=== PATIENT | male | born 1980 | race Two or more races ===

== ENCOUNTER 2024-08-03 06:11 | Inpatient (IN) | payer OTHER ==
[~2024-08-03] VITALS: Ht 182.9 cm; Wt 99.8 kg
[2024-08-03] MEDS ORDERED: ZOLOFT25 MG (06:18)
[2024-08-03] MEDS ORDERED: HYOSCYAMINE SULFATE 0.125 MG TAB.SUBL SL STA (06:35)
[2024-08-03] MEDS ORDERED: RINGERS SOLUTION,LACTATED 1,000 ML IV STA (06:35)
[2024-08-03] MEDS ORDERED: PROMETHAZINE HCL 50 MG/ML AMPUL IM STA (06:36)
[2024-08-03] MEDS ORDERED: MEPERIDINE HCL/PF 50 MG/ML VIAL IM STA (06:36)
[2024-08-03] MEDS ORDERED: HYOSCYAMINE SULFATE 0.125 MG TAB.SUBL ONE (07:15)
[2024-08-03] MEDS ORDERED: PROMETHAZINE HCL 50 MG/ML AMPUL IM ONE (07:15)
[2024-08-03] MEDS ORDERED: DIATRIZOATE MEGLUMINE, SODIUM 30 ML BOTTLE ONE (07:25)
[2024-08-03 08:38] LABS: ALBUMIN 3.5 gm/dL (3.4-5.0); CREATININE SERUM 0.9 mg/dL (0.70-1.30); GFR 90.84; GLOBULINA 4.1 G/DL (2.4-3.5); POTASSIUM 3.51 mEq/L (3.5-5.1); TOTAL PROTEIN 7.6 gm/dL (6.4-8.2)
[2024-08-03 08:39] LABS: HEMATOCRIT 41.8 % (39.0-48.0); HEMOGLOBIN 14.6 g/dL (13-16.00); MEAN CELL VOLUME 86.9 fL (80.0-100.00); MEAN CORPUSCULAR HEMOGLOBIN 30.3 pg (27.00-32.0); MEAN CORPUSCULAR HGB CONC 34.9 g/dl (32.0-36.0); PLATELET COUNT 305 K/uL (150-450); RED BLOOD COUNT 4.81 M/uL (4.00-6.00); RED CELL DISTRIBUTION WIDTH 14.2 % (11.5-14.5)
[2024-08-03 08:43] LABS: INR 1.16; PROTHROMBIN TIME 12.5 SECONDS (9.0-11.5)
[2024-08-03] MEDS ORDERED: PIPERACILLIN/TAZOBACTAM SODIUM 3.375 GM VIAL IV ONE ×2 (10:25→10:30)
[2024-08-03] MEDS ORDERED: MORPHINE SULFATE 4 MG/ML CARTRIDGE IV ONE (12:00)
[2024-08-03] MEDS ORDERED: FAMOTIDINE/PF 20 MG/2 ML VIAL IV SCH (12:56)
[2024-08-03] MEDS ORDERED: ONDANSETRON HCL 4 MG in 0.9 % SODIUM CHLORIDE 50 ML IV PRN (13:00)
[2024-08-03] MEDS ORDERED: 0.9 % SODIUM CHLORIDE 1,000 ML IV SCH (13:00)
[2024-08-03] MEDS ORDERED: ENOXAPARIN SODIUM 40 MG/0.4 ML SYRINGE SUBCUTANEO SCH (13:00)
[2024-08-03] MEDS ORDERED: SERTRALINE HCL 100 MG TABLET PO SCH (13:13)
[2024-08-03] MEDS ORDERED: FAMOTIDINE/PF 20 MG/2 ML VIAL ONE (13:51)
[2024-08-03] MEDS ORDERED: ENOXAPARIN SODIUM 40 MG/0.4 ML SYRINGE SUBCUTANEO ONE (13:51)
[2024-08-03] MEDS ORDERED: PIPERACILLIN/TAZOBACTAM SODIUM 3.375 GM in 0.9 % SODIUM CHLORIDE 100 ML IV SCH (14:00)
[2024-08-03 14:25] VITALS: BP 130/79; O2SAT 100
[2024-08-03 14:54] LABS: INR 1.18; PARTIAL THROMBOPLASTIN TIME 34.3 SECONDS (22.0-34.0); PROTHROMBIN TIME 12.7 SECONDS (9.0-11.5)
[2024-08-03 15:42] VITALS: BP 114/74; O2SAT 99
[2024-08-03] MEDS ORDERED: MORPHINE SULFATE 4 MG/ML CARTRIDGE IV PRN (17:15)
[2024-08-03 18:00] VITALS: BP 158/84; O2SAT 97
[2024-08-03 21:01] LABS: PH,URINE 5.5 (5.0-8.0); URINE APPEARANCE Clear; URINE BILIRRUBIN Negative (NEGATIVE); URINE BLOOD Moderate; URINE COLOR Dark Yellow; URINE GLUCOSE Negative (NEGATIVE); URINE LEUKOCYTE Negative; URINE NITRATE Negative
[2024-08-03 21:04] LABS: URINE EPITHELIAL CELLS 5.5 uL (0.0-38.8); URINE WBC 4.7 uL (0.0-23.2)
[2024-08-03 21:07] LABS: URINE BACTERIA 1.2 uL (0.0-1933); URINE KETONE 40 (NEGATIVE); URINE PROTEIN 100 (NEGATIVE)
[2024-08-04 02:16] VITALS: BP 140/80; O2SAT 97
[2024-08-04 08:14] VITALS: BP 123/75
[2024-08-04 09:00] LABS: HEMATOCRIT 42.3 % (39.0-48.0); HEMOGLOBIN 14.3 g/dL (13-16.00); MEAN CORPUSCULAR HEMOGLOBIN 30.3 pg (27.00-32.0); MEAN CORPUSCULAR HGB CONC 33.7 g/dl (32.0-36.0); PLATELET COUNT 272 K/uL (150-450); RED CELL DISTRIBUTION WIDTH 14.1 % (11.5-14.5)
[2024-08-04 09:24] LABS: CALCIUM 8.8 mg/dL (8.5-10.1); CREATININE SERUM 0.94 mg/dL (0.70-1.30); GFR 86.4; POTASSIUM 3.78 mEq/L (3.5-5.1)
[2024-08-04 17:01] VITALS: BP 147/87
[2024-08-04] MEDS ORDERED: fentaNYL CITRATE 50 MCG/ML AMPUL IV PUSH ONE (17:45)
[2024-08-04] MEDS ORDERED: MIDAZOLAM HCL 2 MG/2 ML VIAL IV PUSH ONE (17:45)
[2024-08-04] MEDS ORDERED: FentaNYL CITRATE/PF 50MCG/ML 2ML VIAL IJ ONE (21:15)
[2024-08-05 00:46] VITALS: BP 133/84; O2SAT 97
[2024-08-05 07:43] VITALS: BP 129/80
[2024-08-05 17:50] VITALS: BP 148/87
[2024-08-05 17:53] VITALS: BP 148/87
[2024-08-05] MEDS ORDERED: SODIUM CL 0.9% 100 ML IV.SOLN IV ONE (23:27)
[2024-08-06 01:00] VITALS: BP 138/88; O2SAT 98
[2024-08-06] MEDS ORDERED: PIPERACILLIN/TAZOBACTAM SODIUM 3.375 GM VIAL IV ONE ×2 (08:26→14:04)
[2024-08-06 09:11] VITALS: BP 151/97; O2SAT 98
[2024-08-06 10:57] LABS: HEMATOCRIT 39.9 % (39.0-48.0); HEMOGLOBIN 13.2 g/dL (13-16.00); MEAN CELL VOLUME 90.1 fL (80.0-100.00); MEAN CORPUSCULAR HEMOGLOBIN 29.7 pg (27.00-32.0); PLATELET COUNT 356 K/uL (150-450); RED BLOOD COUNT 4.42 M/uL (4.00-6.00); RED CELL DISTRIBUTION WIDTH 14.5 % (11.5-14.5)
[2024-08-06 11:55] LABS: ALBUMIN 2.6 gm/dL (3.4-5.0); CALCIUM 8.8 mg/dL (8.5-10.1); CREATININE SERUM 0.68 mg/dL (0.70-1.30); GFR 125.54; MAGNESIUM 1.9 mg/dL (1.8-2.4); PHOSPHOROUS 2.8 mg/dL (2.5-4.9); POTASSIUM 3.67 mEq/L (3.5-5.1)
[2024-08-06 12:06] LABS: C-REACTIVE PROTEIN 18.7 MG/DL (0.00-0.29)
[2024-08-06 16:38] VITALS: BP 158/89
[2024-08-06] MEDS ORDERED: ALPRAzolam 0.25 MG TABLET PO SCH (21:00)
[2024-08-07 01:50] VITALS: BP 174/90
[2024-08-07] MEDS ORDERED: PIPERACILLIN/TAZOBACTAM SODIUM 3.375 GM VIAL IV ONE (07:49)
[2024-08-07 08:14] VITALS: BP 137/88
[2024-08-07 16:00] VITALS: BP 156/99; O2SAT 98
[2024-08-08 01:26] VITALS: BP 160/88
[2024-08-08 09:17] VITALS: BP 161/90
[2024-08-08] MEDS ORDERED: DIATRIZOATE MEGLUMINE, SODIUM 30 ML BOTTLE PO ONE (15:45)
[2024-08-08 16:00] VITALS: BP 151/91; O2SAT 99
[2024-08-08 19:50] LABS: HEMATOCRIT 38.7 % (39.0-48.0); MEAN CELL VOLUME 90.3 fL (80.0-100.00); MEAN CORPUSCULAR HEMOGLOBIN 30.3 pg (27.00-32.0); MEAN CORPUSCULAR HGB CONC 33.6 g/dl (32.0-36.0); PLATELET COUNT 443 K/uL (150-450); RED BLOOD COUNT 4.29 M/uL (4.00-6.00); RED CELL DISTRIBUTION WIDTH 14.4 % (11.5-14.5)
[2024-08-08 20:17] LABS: ALBUMIN 2.8 gm/dL (3.4-5.0); BILIRUBIN TOTAL 0.41 mg/dL (0.3-1.2); CALCIUM 8.6 mg/dL (8.5-10.1); CREATININE SERUM 0.81 mg/dL (0.70-1.30); GFR 102.59; GLOBULINA 3.7 G/DL (2.4-3.5); POTASSIUM 4.44 mEq/L (3.5-5.1); TOTAL PROTEIN 6.5 gm/dL (6.4-8.2)
[2024-08-09 02:07] VITALS: BP 154/97; O2SAT 98
[2024-08-09 08:19] VITALS: BP 140/81
[2024-08-09] MEDS ORDERED: METROnidazole 500 MG TABLET PO SCH (17:00)
[2024-08-09] MEDS ORDERED: levoFLOXacin IN DEXTROSE 5 % 150 ML IV SCH (17:00)
[2024-08-09 17:07] VITALS: BP 129/82; O2SAT 99
[2024-08-09 17:46] LABS: ALBUMIN 2.9 gm/dL (3.4-5.0); ALKALINE PHOSPHATASE 129 U/L (50-136); ALT/SGPT 89 U/L (12-78); AST/SGOT 41 U/L (15-37); BILIRUBIN TOTAL 0.39 mg/dL (0.3-1.2); BILIRUBIN,CONJUGATED < 0.10 mg/dL (0.0-0.2); BILIRUBIN,UNCONJUGATED 0.29 mg/dL (0.0-0.6); PHOSPHOKINASE CREATININE 37 U/L (39-308); TOTAL PROTEIN 6.8 gm/dL (6.4-8.2)
[2024-08-09] MEDS ORDERED: DIPHENHYDRAMINE HCL 50 MG/ML VIAL 1ML IV NR (18:00)
[2024-08-10 02:47] VITALS: BP 142/88; O2SAT 96
[2024-08-10 08:46] LABS: HEMATOCRIT 39.9 % (39.0-48.0); MEAN CELL VOLUME 89.6 fL (80.0-100.00); MEAN CORPUSCULAR HEMOGLOBIN 31.4 pg (27.00-32.0); MEAN CORPUSCULAR HGB CONC 35.1 g/dl (32.0-36.0); PLATELET COUNT 507 K/uL (150-450); RED BLOOD COUNT 4.45 M/uL (4.00-6.00); RED CELL DISTRIBUTION WIDTH 14.5 % (11.5-14.5)
[2024-08-10 09:27] VITALS: BP 138/84; O2SAT 98
[2024-08-10 09:58] LABS: BILIRUBIN TOTAL 0.47 mg/dL (0.3-1.2); CALCIUM 9.1 mg/dL (8.5-10.1); CREATININE SERUM 0.75 mg/dL (0.70-1.30); GFR 112.12; GLOBULINA 3.9 G/DL (2.4-3.5); POTASSIUM 4.2 mEq/L (3.5-5.1); TOTAL PROTEIN 6.9 gm/dL (6.4-8.2)
== END 2024-08-10 17:23 | disposition home or self-care (01) | DRG 871 ==
LOC: ER 06:11 → MEDJ 14:04 → SEC-K 14:04 → MEDJ 16:14
PROVIDERS: General Practice; Internal Medicine Infectious Disease; Student in an Organized Health Care Education/Training Program; Surgery; ADMIT Internal Medicine; ATTEND Internal Medicine
PROC: BW21YZZ Computerized Tomography (CT Scan) of Abdomen and Pelvis using Other Contrast (ICD-10-PCS; 2024-08-03)
PROC: 0W9G30Z Drainage of Peritoneal Cavity with Drainage Device, Percutaneous Approach (ICD-10-PCS; principal; 2024-08-04)
PROC: BW21YZZ Computerized Tomography (CT Scan) of Abdomen and Pelvis using Other Contrast (ICD-10-PCS; 2024-08-09)
DX: A41.9 Sepsis, unspecified organism (principal); K35.33 Acute appendicitis with perforation, localized peritonitis, and gangrene, with abscess; L02.211 Cutaneous abscess of abdominal wall; K38.1 Appendicular concretions; E86.0 Dehydration; L27.1 Localized skin eruption due to drugs and medicaments taken internally; T36.0X5A Adverse effect of penicillins, initial encounter; Y92.230 Patient room in hospital as the place of occurrence of the external cause; B96.20 Unspecified Escherichia coli [E. coli] as the cause of diseases classified elsewhere; B96.4 Proteus (mirabilis) (morganii) as the cause of diseases classified elsewhere; B96.6 Bacteroides fragilis [B. fragilis] as the cause of diseases classified elsewhere; B96.89 Other specified bacterial agents as the cause of diseases classified elsewhere

== ENCOUNTER 2024-08-24 07:38 | Outpatient (CLI) | payer OTHER ==
[~2024-08-24 07:38] MED LIST: ZOLOFT25 MG
== END 2024-08-24 07:55 | disposition home or self-care (01) ==
LOC: TOM 07:38
PROVIDERS: ATTEND Student in an Organized Health Care Education/Training Program
DX: K65.1 Peritoneal abscess (principal)

== ENCOUNTER 2024-09-06 09:51 | Inpatient (IN) | payer OTHER ==
[~2024-09-06] VITALS: Ht 185.4 cm; Wt 95.3 kg
[2024-09-06] MEDS ORDERED: ZOLOFT100 MG PO (11:15)
[2024-09-06] MEDS ORDERED: XANAX0.25 MG PO (11:16)
[2024-09-06] MEDS ORDERED: 0.9 % SODIUM CHLORIDE 1,000 ML IV STA (11:27)
[2024-09-06 12:26] LABS: HEMATOCRIT 39.8 % (39.0-48.0); HEMOGLOBIN 13.7 g/dL (13-16.00); MEAN CELL VOLUME 88.8 fL (80.0-100.00); MEAN CORPUSCULAR HEMOGLOBIN 30.6 pg (27.00-32.0); MEAN CORPUSCULAR HGB CONC 34.5 g/dl (32.0-36.0); PLATELET COUNT 354 K/uL (150-450); RED BLOOD COUNT 4.48 M/uL (4.00-6.00); RED CELL DISTRIBUTION WIDTH 13.8 % (11.5-14.5)
[2024-09-06 12:49] LABS: CALCIUM 9.8 mg/dL (8.5-10.1); CREATININE SERUM 0.83 mg/dL (0.70-1.30); GFR 99.74; POTASSIUM 3.86 mEq/L (3.5-5.1)
[2024-09-06 13:26] LABS: PH,URINE 5.5 (5.0-8.0); URINE APPEARANCE Clear; URINE BILIRRUBIN Small (NEGATIVE); URINE BLOOD Moderate; URINE COLOR Dark Yellow; URINE GLUCOSE Negative (NEGATIVE); URINE LEUKOCYTE Small; URINE NITRATE Negative
[2024-09-06 13:32] LABS: URINE BACTERIA 55.4 uL (0.0-1933); URINE EPITHELIAL CELLS 10.9 uL (0.0-38.8); URINE RBC 194.5 uL (0.0-20.8); URINE WBC 10.3 uL (0.0-23.2)
[2024-09-06 13:56] LABS: URINE CAST 0.91 uL (0.0-1.40); URINE KETONE 40 (NEGATIVE); URINE PROTEIN 100 (NEGATIVE)
[2024-09-06] MEDS ORDERED: PIPERACILLIN/TAZOBACTAM SODIUM 3.375 GM in DEXTROSE 5 % IN WATER 100 ML IV SCH (18:53)
[2024-09-06] MEDS ORDERED: ACETAMINOPHEN 500 MG GEL..CAP PO PRN (19:00)
[2024-09-06] MEDS ORDERED: ONDANSETRON HCL 4 MG in 0.9 % SODIUM CHLORIDE 50 ML IV PRN (19:00)
[2024-09-06] MEDS ORDERED: MORPHINE SULFATE 4 MG/ML CARTRIDGE IV PRN (19:00)
[2024-09-06] MEDS ORDERED: 0.9 % SODIUM CHLORIDE 1,000 ML IV SCH (19:00)
[2024-09-06 20:39] LABS: INR 1.15; PARTIAL THROMBOPLASTIN TIME 30.1 SECONDS (22.0-34.0); PROTHROMBIN TIME 12.4 SECONDS (9.0-11.5)
[2024-09-06] MEDS ORDERED: ALPRAzolam 0.25 MG TABLET PO SCH (21:00)
[2024-09-07 00:13] VITALS: BP 120/77; O2SAT 98
[2024-09-07 08:51] VITALS: BP 132/74; O2SAT 97
[2024-09-07] MEDS ORDERED: FAMOTIDINE/PF 20 MG in 0.9 % SODIUM CHLORIDE 8 ML IV PUSH SCH (09:00)
[2024-09-07] MEDS ORDERED: ENOXAPARIN SODIUM 40 MG/0.4 ML SYRINGE SUBCUTANEO SCH (09:00)
[2024-09-07] MEDS ORDERED: SERTRALINE HCL 100 MG TABLET PO SCH (09:00)
[2024-09-07] MEDS ORDERED: ACETAMINOPHEN 500 MG GEL..CAP PO SCH (14:00)
[2024-09-07 16:25] VITALS: BP 141/83; O2SAT 96
[2024-09-08 04:00] VITALS: BP 127/73; O2SAT 97
[2024-09-08 08:50] VITALS: BP 154/80; O2SAT 97
[2024-09-08 15:59] LABS: CALCIUM 8.9 mg/dL (8.5-10.1); CREATININE SERUM 0.73 mg/dL (0.70-1.30); GFR 115.67; MAGNESIUM 1.6 mg/dL (1.8-2.4); PHOSPHOROUS 3.1 mg/dL (2.5-4.9); POTASSIUM 3.99 mEq/L (3.5-5.1)
[2024-09-08 16:06] LABS: HEMATOCRIT 37.2 % (39.0-48.0); HEMOGLOBIN 12.6 g/dL (13-16.00); MEAN CELL VOLUME 88.8 fL (80.0-100.00); MEAN CORPUSCULAR HEMOGLOBIN 30.1 pg (27.00-32.0); MEAN CORPUSCULAR HGB CONC 33.9 g/dl (32.0-36.0); PLATELET COUNT 400 K/uL (150-450); RED BLOOD COUNT 4.18 M/uL (4.00-6.00); RED CELL DISTRIBUTION WIDTH 13.9 % (11.5-14.5)
[2024-09-08 18:15] VITALS: BP 129/76; O2SAT 98
[2024-09-09 01:06] VITALS: BP 147/79
[2024-09-09 09:38] VITALS: BP 126/79
[2024-09-09] MEDS ORDERED: MAGNESIUM SULFATE IN WATER 2 GM/50 ML PIGGYBAG IV NR (14:00)
[2024-09-09] MEDS ORDERED: AMINO ACIDS 1 EACH TABLET PO SCH (14:08)
[2024-09-09 15:42] LABS: FECAL LEUKOCYTES POSITIVE (NEGATIVE)
[2024-09-09 18:10] VITALS: BP 131/82; O2SAT 95
[2024-09-10 01:50] VITALS: BP 119/77
[2024-09-10 06:17] LABS: HEMATOCRIT 34.1 % (39.0-48.0); HEMOGLOBIN 11.6 g/dL (13-16.00); MEAN CELL VOLUME 88.4 fL (80.0-100.00); MEAN CORPUSCULAR HEMOGLOBIN 30.1 pg (27.00-32.0); PLATELET COUNT 401 K/uL (150-450); RED BLOOD COUNT 3.86 M/uL (4.00-6.00); RED CELL DISTRIBUTION WIDTH 13.9 % (11.5-14.5)
[2024-09-10 07:01] LABS: ALBUMIN 2.4 gm/dL (3.4-5.0); BILIRUBIN TOTAL 0.58 mg/dL (0.3-1.2); CALCIUM 7.9 mg/dL (8.5-10.1); CREATININE SERUM 0.58 mg/dL (0.70-1.30); GFR 150.83; GLOBULINA 3.3 G/DL (2.4-3.5); POTASSIUM 3.6 mEq/L (3.5-5.1); TOTAL PROTEIN 5.7 gm/dL (6.4-8.2)
[2024-09-10 07:08] LABS: ERYTHROCYTE SEDIMENTATION RATE 90 mm/hr
[2024-09-10 07:09] LABS: C-REACTIVE PROTEIN 17.7 MG/DL (0.00-0.29)
[2024-09-10] MEDS ORDERED: MORPHINE SULFATE 4 MG/ML CARTRIDGE IV PRN (07:34)
[2024-09-10 09:36] VITALS: BP 133/87; O2SAT 97
[2024-09-10 18:40] VITALS: BP 118/77; O2SAT 99
[2024-09-11 01:56] VITALS: BP 119/80; O2SAT 97
[2024-09-11 10:30] VITALS: BP 116/74; O2SAT 97
[2024-09-11 18:37] VITALS: BP 136/83
[2024-09-12 02:33] VITALS: BP 128/82
[2024-09-12 10:14] VITALS: BP 126/79; O2SAT 97
[2024-09-12 17:14] VITALS: BP 121/80
[2024-09-12 20:36] VITALS: BP 123/81
[2024-09-13 01:58] VITALS: BP 118/76
[2024-09-13 08:49] VITALS: BP 123/78; O2SAT 98
[2024-09-13] MEDS ORDERED: MORPHINE SULFATE 4 MG/ML CARTRIDGE IV PRN (10:15)
[2024-09-13] MEDS ORDERED: MORPHINE SULFATE 4 MG/ML VIAL IV ONE (10:15)
[2024-09-13 11:55] LABS: HEMOGLOBIN 13.3 g/dL (13-16.00); MEAN CELL VOLUME 89.1 fL (80.0-100.00); MEAN CORPUSCULAR HEMOGLOBIN 29.7 pg (27.00-32.0); MEAN CORPUSCULAR HGB CONC 33.3 g/dl (32.0-36.0); PLATELET COUNT 558 K/uL (150-450); RED BLOOD COUNT 4.48 M/uL (4.00-6.00); RED CELL DISTRIBUTION WIDTH 14.3 % (11.5-14.5)
[2024-09-13 12:46] LABS: BILIRUBIN TOTAL 0.68 mg/dL (0.3-1.2); CALCIUM 9.2 mg/dL (8.5-10.1); CREATININE SERUM 0.61 mg/dL (0.70-1.30); GFR 142.31; MAGNESIUM 1.9 mg/dL (1.8-2.4); POTASSIUM 4.25 mEq/L (3.5-5.1)
[2024-09-13] MEDS ORDERED: fentaNYL CITRATE 50 MCG/ML AMPUL IV PUSH ONE ×2 (17:15→18:00)
[2024-09-13] MEDS ORDERED: MIDAZOLAM HCL 2 MG/2 ML VIAL IV PUSH ONE (17:15)
[2024-09-13] MEDS ORDERED: MEROPENEM 500 MG/VIAL VIAL IV SCH (18:00)
[2024-09-13 19:50] VITALS: BP 145/82; O2SAT 98
[2024-09-14 01:14] VITALS: BP 151/92
[2024-09-14 09:51] VITALS: BP 134/86; O2SAT 97
[2024-09-14] MEDS ORDERED: DIPHENHYDRAMINE HCL 50 MG/ML VIAL 1ML IV NR (11:30)
[2024-09-14] MEDS ORDERED: AMLODIPINE BESYLATE 2.5 MG TABLET PO SCH (12:00)
[2024-09-14 19:32] VITALS: BP 115/73; O2SAT 96
[2024-09-14] MEDS ORDERED: ALPRAzolam 0.5 MG TABLET PO SCH (21:00)
[2024-09-15 02:23] VITALS: BP 136/88
[2024-09-15 05:09] LABS: HEMATOCRIT 36.8 % (39.0-48.0); HEMOGLOBIN 12.6 g/dL (13-16.00); MEAN CELL VOLUME 86.8 fL (80.0-100.00); MEAN CORPUSCULAR HEMOGLOBIN 29.7 pg (27.00-32.0); MEAN CORPUSCULAR HGB CONC 34.2 g/dl (32.0-36.0); RED BLOOD COUNT 4.23 M/uL (4.00-6.00); RED CELL DISTRIBUTION WIDTH 14.4 % (11.5-14.5)
[2024-09-15 05:12] LABS: PLATELET COUNT 637 K/uL (150-450)
[2024-09-15 05:18] LABS: ALBUMIN 2.7 gm/dL (3.4-5.0); BILIRUBIN TOTAL 0.34 mg/dL (0.3-1.2); CALCIUM 9.2 mg/dL (8.5-10.1); CREATININE SERUM 0.63 mg/dL (0.70-1.30); GFR 137.11; GLOBULINA 3.7 G/DL (2.4-3.5); POTASSIUM 4.49 mEq/L (3.5-5.1); TOTAL PROTEIN 6.4 gm/dL (6.4-8.2)
[2024-09-15 09:40] VITALS: BP 144/70; O2SAT 98
[2024-09-15] MEDS ORDERED: MORPHINE SULFATE 4 MG/ML VIAL IV STA (09:54)
[2024-09-15 12:11] LABS: PH,URINE 7.5 (5.0-8.0); URINE APPEARANCE Clear; URINE BILIRRUBIN Negative (NEGATIVE); URINE BLOOD Negative; URINE COLOR Yellow; URINE GLUCOSE Negative (NEGATIVE); URINE KETONE Trace (NEGATIVE); URINE LEUKOCYTE Negative; URINE NITRATE Negative; URINE PROTEIN Negative (NEGATIVE)
[2024-09-15 12:16] LABS: URINE EPITHELIAL CELLS 1.6 uL (0.0-38.8); URINE RBC 9.4 uL (0.0-20.8); URINE WBC 10.1 uL (0.0-23.2)
[2024-09-15 12:33] LABS: URINE BACTERIA 1.2 uL (0.0-1933)
[2024-09-15] MEDS ORDERED: GABAPENTIN 300 MG CAPSULE PO SCH (13:00)
[2024-09-15 17:59] VITALS: BP 107/68
[2024-09-16 02:08] VITALS: BP 132/75
[2024-09-16] MEDS ORDERED: HYDROCORTISONE 1% 29 G TUBE TOP SCH (09:00)
[2024-09-16 09:33] VITALS: BP 124/77; O2SAT 97
[2024-09-16 20:02] VITALS: BP 127/80; O2SAT 97
[2024-09-17 02:34] VITALS: BP 121/78; O2SAT 97
[2024-09-17 09:52] LABS: HEMATOCRIT 39.3 % (39.0-48.0); HEMOGLOBIN 13.5 g/dL (13-16.00); MEAN CELL VOLUME 87.5 fL (80.0-100.00); MEAN CORPUSCULAR HEMOGLOBIN 30.2 pg (27.00-32.0); MEAN CORPUSCULAR HGB CONC 34.5 g/dl (32.0-36.0); PLATELET COUNT 724 K/uL (150-450); RED BLOOD COUNT 4.49 M/uL (4.00-6.00); RED CELL DISTRIBUTION WIDTH 14.7 % (11.5-14.5)
[2024-09-17 10:36] LABS: ALBUMIN 3.2 gm/dL (3.4-5.0); BILIRUBIN TOTAL 0.27 mg/dL (0.3-1.2); CALCIUM 9.8 mg/dL (8.5-10.1); CREATININE SERUM 0.76 mg/dL (0.70-1.30); GFR 110.42; GLOBULINA 4.1 G/DL (2.4-3.5); POTASSIUM 4.19 mEq/L (3.5-5.1); TOTAL PROTEIN 7.3 gm/dL (6.4-8.2)
[2024-09-17 10:42] VITALS: BP 120/76; O2SAT 98
[2024-09-17 13:15] VITALS: BP 138/81
[2024-09-17] MEDS ORDERED: MORPHINE SULFATE 4 MG/ML CARTRIDGE IV PRN (14:45)
[2024-09-17 20:06] VITALS: BP 123/79; O2SAT 98
[2024-09-17] MEDS ORDERED: MEPERIDINE HCL/PF 25 MG/ML VIAL IV PRN (22:00)
[2024-09-18 04:01] VITALS: BP 109/70; O2SAT 99
[2024-09-18 09:01] VITALS: BP 122/80; O2SAT 98
[2024-09-18 18:29] VITALS: BP 120/75; O2SAT 96
[2024-09-19 01:23] VITALS: BP 104/63; O2SAT 96
[2024-09-19] MEDS ORDERED: LACTULOSE 20 G/30 ML BLIST.PACK PO NR (10:15)
[2024-09-19 11:29] VITALS: BP 118/73; O2SAT 96
[2024-09-19 17:59] VITALS: BP 118/76; O2SAT 97
[2024-09-19] MEDS ORDERED: MORPHINE SULFATE 4 MG/ML CARTRIDGE IV PRN (19:00)
[2024-09-20 01:32] VITALS: BP 116/70; O2SAT 96
[2024-09-20 08:33] VITALS: BP 108/67
[2024-09-20] MEDS ORDERED: LACTULOSE 20 G/30 ML BLIST.PACK PO SCH (09:00)
[2024-09-20] MEDS ORDERED: DIATRIZOATE MEGLUMINE, SODIUM 30 ML BOTTLE PO NR (10:30)
[2024-09-20] MEDS ORDERED: MORPHINE SULFATE 4 MG/ML CARTRIDGE IV PRN (15:30)
[2024-09-20] MEDS ORDERED: ALPRAzolam 0.5 MG TABLET PO SCH (17:00)
[2024-09-20] MEDS ORDERED: METROnidazole 500 MG TABLET PO SCH (17:00)
[2024-09-20] MEDS ORDERED: CEFTRIAXONE SODIUM 2,000 MG VIAL IV SCH (17:00)
[2024-09-20 19:08] VITALS: BP 116/65
[2024-09-21 00:10] LABS: ALBUMIN 3.3 gm/dL (3.4-5.0); BILIRUBIN TOTAL 0.22 mg/dL (0.3-1.2); CALCIUM 9.5 mg/dL (8.5-10.1); CREATININE SERUM 0.7 mg/dL (0.70-1.30); GFR 121.41; GLOBULINA 3.5 G/DL (2.4-3.5); POTASSIUM 4.72 mEq/L (3.5-5.1); TOTAL PROTEIN 6.8 gm/dL (6.4-8.2)
[2024-09-21 00:25] LABS: HEMATOCRIT 38.6 % (39.0-48.0); HEMOGLOBIN 13.2 g/dL (13-16.00); MEAN CORPUSCULAR HEMOGLOBIN 30.1 pg (27.00-32.0); MEAN CORPUSCULAR HGB CONC 34.2 g/dl (32.0-36.0); RED BLOOD COUNT 4.39 M/uL (4.00-6.00); RED CELL DISTRIBUTION WIDTH 14.7 % (11.5-14.5)
[2024-09-21 00:26] LABS: PLATELET COUNT 627 K/uL (150-450)
[2024-09-21 00:27] VITALS: BP 110/69; O2SAT 99
[2024-09-21 00:36] LABS: C-REACTIVE PROTEIN 0.75 MG/DL (0.00-0.29)
[2024-09-21 01:54] LABS: ERYTHROCYTE SEDIMENTATION RATE 62 mm/hr
[2024-09-21 08:00] VITALS: BP 103/70; O2SAT 97
[2024-09-21 18:25] VITALS: BP 135/83
[2024-09-22 00:23] VITALS: BP 112/66; O2SAT 98
[2024-09-22 09:43] VITALS: BP 117/73; O2SAT 95
[2024-09-22] MEDS ORDERED: MORPHINE SULFATE 4 MG/ML CARTRIDGE IV PRN (17:30)
[2024-09-22 18:46] VITALS: BP 154/92
[2024-09-23 02:05] VITALS: BP 117/75; O2SAT 99
[2024-09-23 09:19] VITALS: BP 111/67; O2SAT 99
[2024-09-23 11:37] LABS: HEMATOCRIT 38.8 % (39.0-48.0); HEMOGLOBIN 13.1 g/dL (13-16.00); MEAN CELL VOLUME 87.7 fL (80.0-100.00); MEAN CORPUSCULAR HEMOGLOBIN 29.5 pg (27.00-32.0); MEAN CORPUSCULAR HGB CONC 33.7 g/dl (32.0-36.0); PLATELET COUNT 585 K/uL (150-450); RED BLOOD COUNT 4.43 M/uL (4.00-6.00); RED CELL DISTRIBUTION WIDTH 14.9 % (11.5-14.5)
[2024-09-23 12:29] LABS: BILIRUBIN TOTAL 0.24 mg/dL (0.3-1.2); CALCIUM 9.4 mg/dL (8.5-10.1); CREATININE SERUM 0.82 mg/dL (0.70-1.30); GFR 101.15; GLOBULINA 3.4 G/DL (2.4-3.5); POTASSIUM 4.56 mEq/L (3.5-5.1); TOTAL PROTEIN 6.4 gm/dL (6.4-8.2)
[2024-09-23 18:16] VITALS: BP 128/82
[2024-09-24 00:25] VITALS: BP 113/68; O2SAT 98
[2024-09-24 08:55] VITALS: BP 114/72; O2SAT 98
[2024-09-24 16:51] VITALS: BP 107/67
[2024-09-24] MEDS ORDERED: MORPHINE SULFATE 4 MG/ML CARTRIDGE IV PRN (19:15)
[2024-09-25 02:54] VITALS: BP 113/58; O2SAT 97
[2024-09-25 09:43] VITALS: BP 119/65; O2SAT 97
[2024-09-25 17:54] VITALS: BP 120/65; O2SAT 95
[2024-09-26 02:53] VITALS: BP 121/69; O2SAT 95
[2024-09-26 10:03] VITALS: BP 119/72; O2SAT 97
[2024-09-26 17:05] VITALS: BP 120/75; O2SAT 96
[2024-09-27 02:59] VITALS: BP 116/73; O2SAT 96
[2024-09-27] MEDS ORDERED: MORPHINE SULFATE 4 MG/ML CARTRIDGE IV PRN (09:00)
[2024-09-27 09:17] VITALS: BP 105/66
[2024-09-27] MEDS ORDERED: DIATRIZOATE MEGLUMINE, SODIUM 30 ML BOTTLE PO NR (09:45)
[2024-09-27 18:03] VITALS: BP 140/65
[2024-09-27] MEDS ORDERED: ALPRAzolam 0.5 MG TABLET PO SCH (21:00)
[2024-09-27 23:58] LABS: HEMATOCRIT 38.8 % (39.0-48.0); HEMOGLOBIN 13.3 g/dL (13-16.00); MEAN CELL VOLUME 87.3 fL (80.0-100.00); MEAN CORPUSCULAR HEMOGLOBIN 29.8 pg (27.00-32.0); MEAN CORPUSCULAR HGB CONC 34.2 g/dl (32.0-36.0); PLATELET COUNT 423 K/uL (150-450); RED BLOOD COUNT 4.44 M/uL (4.00-6.00); RED CELL DISTRIBUTION WIDTH 14.9 % (11.5-14.5)
[2024-09-28 00:13] LABS: ALBUMIN 3.2 gm/dL (3.4-5.0); CALCIUM 9.1 mg/dL (8.5-10.1); CREATININE SERUM 0.86 mg/dL (0.70-1.30); GFR 95.74; MAGNESIUM 1.9 mg/dL (1.8-2.4); PHOSPHOROUS 3.8 mg/dL (2.5-4.9); POTASSIUM 4.5 mEq/L (3.5-5.1)
[2024-09-28 01:11] VITALS: BP 109/70; O2SAT 99
[2024-09-28 08:51] VITALS: BP 101/64
[2024-09-28 08:52] VITALS: BP 101/64
[2024-09-28 19:16] VITALS: BP 123/78; O2SAT 98
[2024-09-29 00:54] VITALS: BP 112/72; O2SAT 98
[2024-09-29 09:20] VITALS: BP 125/80
[2024-09-29] MEDS ORDERED: NORVASC2.5 M1 PO (11:27)
== END 2024-09-29 12:57 | disposition home or self-care (01) | DRG 372 ==
LOC: ER 09:53 → MEDI 20:08 → MEDJ 09-08 17:43
PROVIDERS: Emergency Medicine; General Practice; Student in an Organized Health Care Education/Training Program; ADMIT Internal Medicine; ATTEND Internal Medicine
PROC: BW21YZZ Computerized Tomography (CT Scan) of Abdomen and Pelvis using Other Contrast (ICD-10-PCS; 2024-09-06)
PROC: BW21YZZ Computerized Tomography (CT Scan) of Abdomen and Pelvis using Other Contrast (ICD-10-PCS; 2024-09-10)
PROC: 0J9830Z Drainage of Abdomen Subcutaneous Tissue and Fascia with Drainage Device, Percutaneous Approach (ICD-10-PCS; principal; 2024-09-13)
PROC: BW21YZZ Computerized Tomography (CT Scan) of Abdomen and Pelvis using Other Contrast (ICD-10-PCS; 2024-09-13)
PROC: BW21YZZ Computerized Tomography (CT Scan) of Abdomen and Pelvis using Other Contrast (ICD-10-PCS; 2024-09-19)
PROC: BW21YZZ Computerized Tomography (CT Scan) of Abdomen and Pelvis using Other Contrast (ICD-10-PCS; 2024-09-27)
DX: K35.33 Acute appendicitis with perforation, localized peritonitis, and gangrene, with abscess (principal); L02.211 Cutaneous abscess of abdominal wall; R65.10 Systemic inflammatory response syndrome (SIRS) of non-infectious origin without acute organ dysfunction; K52.9 Noninfective gastroenteritis and colitis, unspecified; D75.838 Other thrombocytosis; K59.00 Constipation, unspecified; L27.1 Localized skin eruption due to drugs and medicaments taken internally; T36.0X5A Adverse effect of penicillins, initial encounter; Y92.230 Patient room in hospital as the place of occurrence of the external cause; B96.6 Bacteroides fragilis [B. fragilis] as the cause of diseases classified elsewhere; B96.89 Other specified bacterial agents as the cause of diseases classified elsewhere

== ENCOUNTER 2024-10-20 05:30 | Inpatient (IN) | payer OTHER ==
[2024-10-07 09:37] LABS: HEMOGLOBIN 14.1 g/dL (13-16.00); MEAN CELL VOLUME 87.4 fL (80.0-100.00); MEAN CORPUSCULAR HGB CONC 34.3 g/dl (32.0-36.0); PLATELET COUNT 356 K/uL (150-450); RED BLOOD COUNT 4.69 M/uL (4.00-6.00); RED CELL DISTRIBUTION WIDTH 15.3 % (11.5-14.5)
[2024-10-07 09:54] LABS: PH,URINE 5.5 (5.0-8.0); URINE APPEARANCE Clear; URINE BILIRRUBIN Negative (NEGATIVE); URINE BLOOD Negative; URINE COLOR Yellow; URINE GLUCOSE Negative (NEGATIVE); URINE KETONE Negative (NEGATIVE); URINE LEUKOCYTE Trace; URINE NITRATE Negative; URINE PROTEIN Negative (NEGATIVE); URINE UROBILINOGEN 0.2 E.U./dl
[2024-10-07 09:58] LABS: URINE RBC 12.6 uL (0.0-20.8); URINE WBC 8.1 uL (0.0-23.2)
[2024-10-07 09:58] LABS: INR 1.05; PARTIAL THROMBOPLASTIN TIME 29.7 SECONDS (22.0-34.0); PROTHROMBIN TIME 11.4 SECONDS (9.0-11.5)
[2024-10-07 10:01] LABS: URINE EPITHELIAL CELLS 0.9 uL (0.0-38.8)
[2024-10-07 10:55] LABS: ALBUMIN 3.9 gm/dL (3.4-5.0); BILIRUBIN TOTAL 0.54 mg/dL (0.3-1.2); CALCIUM 9.7 mg/dL (8.5-10.1); CREATININE SERUM 0.92 mg/dL (0.70-1.30); GFR 88.57; GLOBULINA 3.2 G/DL (2.4-3.5); POTASSIUM 4.52 mEq/L (3.5-5.1); TOTAL PROTEIN 7.1 gm/dL (6.4-8.2)
[~2024-10-20] VITALS: Ht 175.3 cm; Wt 95.3 kg
[~2024-10-20 05:30] MED LIST changes: +NORVASC2.5 M1 PO; +XANAX0.25 MG PO; +ZOLOFT100 MG PO
[2024-10-20] MEDS ORDERED: CEFAZOLIN SODIUM 1,000 MG VIAL IV ONE (08:30)
[2024-10-20] MEDS ORDERED: METRONIDAZOLE/SODIUM CHLORIDE 500 MG/100 ML PIGGYBACK IV ONE (08:30)
[2024-10-20] MEDS ORDERED: BUPIVACAINE HCL 30 ML VIAL IJ ONE (08:30)
[2024-10-20] MEDS ORDERED: ACETAMINOPHEN 500 MG GEL..CAP PO SCH (09:52)
[2024-10-20] MEDS ORDERED: GABAPENTIN 300 MG CAPSULE PO SCH (09:52)
[2024-10-20] MEDS ORDERED: ONDANSETRON HCL 2 MG/ML VIAL IV PRN (10:00)
[2024-10-20] MEDS ORDERED: RINGERS SOLUTION,LACTATED 1,000 ML IV SCH (10:00)
[2024-10-20] MEDS ORDERED: MORPHINE SULFATE 4 MG/ML CARTRIDGE IV PRN (10:00)
[2024-10-20] MEDS ORDERED: MORPHINE SULFATE 4 MG/ML VIAL IV ONE ×3 (10:10→16:30)
[2024-10-20] MEDS ORDERED: ALPRAzolam 0.25 MG TABLET PO SCH (21:00)
[2024-10-20] MEDS ORDERED: METRONIDAZOLE/SODIUM CHLORIDE 5 MG/ML ML IV SCH (21:49)
[2024-10-21 01:14] VITALS: BP 130/79; O2SAT 97
[2024-10-21 08:00] VITALS: BP 119/71; O2SAT 95
[2024-10-21] MEDS ORDERED: SERTRALINE HCL 100 MG TABLET PO SCH (09:00)
[2024-10-21] MEDS ORDERED: ENOXAPARIN SODIUM 40 MG/0.4 ML SYRINGE SUBCUTANEO SCH (09:00)
[2024-10-21] MEDS ORDERED: METRONIDAZOLE/SODIUM CHLORIDE 500 MG/100 ML PIGGYBACK IV SCH (09:00)
[2024-10-21] MEDS ORDERED: AMLODIPINE BESYLATE 2.5 MG TABLET PO SCH (09:00)
[2024-10-21] MEDS ORDERED: KETOROLAC TROMETHAMINE 30 MG VIAL IV STA (14:31)
[2024-10-21] MEDS ORDERED: TRAMADOL HCL 50 MG TABLET PO PRN (14:45)
[2024-10-21] MEDS ORDERED: KETOROLAC TROMETHAMINE 30 MG VIAL IV PRN (14:45)
[2024-10-21 17:16] VITALS: BP 125/78; O2SAT 97
[2024-10-22] VITALS: BP 133/69; O2SAT 95
[2024-10-22 07:17] LABS: HEMATOCRIT 39.7 % (39.0-48.0); HEMOGLOBIN 13.6 g/dL (13-16.00); MEAN CELL VOLUME 87.5 fL (80.0-100.00); MEAN CORPUSCULAR HGB CONC 34.3 g/dl (32.0-36.0); PLATELET COUNT 306 K/uL (150-450); RED BLOOD COUNT 4.54 M/uL (4.00-6.00); RED CELL DISTRIBUTION WIDTH 15.4 % (11.5-14.5)
[2024-10-22 07:48] LABS: ALBUMIN 3.4 gm/dL (3.4-5.0); BILIRUBIN TOTAL 0.74 mg/dL (0.3-1.2); CALCIUM 8.7 mg/dL (8.5-10.1); CREATININE SERUM 0.72 mg/dL (0.70-1.30); GFR 117.53; GLOBULINA 2.8 G/DL (2.4-3.5); POTASSIUM 4.43 mEq/L (3.5-5.1); TOTAL PROTEIN 6.2 gm/dL (6.4-8.2)
[2024-10-22 08:00] VITALS: BP 135/81; O2SAT 99
[2024-10-22 17:11] VITALS: BP 109/70; O2SAT 95
[2024-10-23 01:16] VITALS: BP 122/71; O2SAT 100
[2024-10-23 08:00] VITALS: BP 120/74; O2SAT 95
[2024-10-23 20:16] VITALS: BP 114/71; O2SAT 96
[2024-10-24 00:48] VITALS: BP 120/75; O2SAT 100
[2024-10-24 08:00] VITALS: BP 129/76; O2SAT 99
== END 2024-10-24 15:41 | disposition home or self-care (01) | DRG 399 ==
LOC: CIR.AMB 05:30 → SURG 08:15 → EDSTATUS 08:15 → O/R 11:29 → SURH 11:29
PROVIDERS: Internal Medicine; ADMIT Student in an Organized Health Care Education/Training Program; ATTEND Student in an Organized Health Care Education/Training Program
PROC: 0DTJ4ZZ Resection of Appendix, Percutaneous Endoscopic Approach (ICD-10-PCS; principal; 2024-10-20 07:00)
DX: K35.33 Acute appendicitis with perforation, localized peritonitis, and gangrene, with abscess (principal); Z87.19 Personal history of other diseases of the digestive system